=== PATIENT | male | born 1950 | race Caucasian/White ===

== ENCOUNTER 2021-04-25 18:23 | Observation (INO) ==
[2021-04-25 18:50] LABS: ABS Lymphocytes 1.3 10^3/ul (1.0-4.8); ABS Monocytes 0.6 10^3/ul (0-0.8); ABS Neutrophils 5.9 10^3/ul (1.5-7.7); Eosinophil % 0.3 %; Hematocrit 43 % (42-52); Lymphocyte % 16.5 %; Mean Corpuscular HGB Conc 35 g/dL (31-36); Mean Corpuscular Hemoglobin 36 pg (27-31); Mean Corpuscular Volume 103 fL (80-94); Mean Platelet Volume 7.5 fL (7.4-10.4); Platelet Count 199 10^3/uL (150-450); Red Blood Count 4.17 10^6 /uL (4.18-5.48); Red Cell Distribution Width 14 % (10-15); White Blood Count 7.9 10^3/uL (3.5-10.8)
[2021-04-25] MEDS ORDERED: Iodixanol (CONTRAST) 320 MG/ML 100 ML SDV IV ONE ×2 (18:55→19:13)
[2021-04-25 18:56] LABS: INR 0.89 (0.86-1.15)
[2021-04-25 19:06] LABS: Albumin 4.6 g/dL (3.2-5.2); Albumin/Globulin Ratio 1.6 (1-3); Calcium 9.6 mg/dL (8.6-10.3); EGFR African American 128.5 (>60); EGFR Non-African American 106.2 (>60); Globulin 2.9 g/dL (2-4); Total Bilirubin 0.4 mg/dL (0.2-1.0); Total Protein 7.5 g/dL (6.4-8.9)
[2021-04-25] MEDS ORDERED: Ondansetron 4 mg VIAL 2 MG/ML 2 ml VIAL IV PRN (20:02)
[2021-04-25] MEDS ORDERED: Lorazepam PYXIS KEY PRN (20:38)
[2021-04-25] MEDS ORDERED: LORazepam 2 mg VIAL 1 ml IV PUSH ONE (20:38)
[2021-04-25 20:58] LABS: Activated Partial Thrombo Time 27.1 seconds (26.0-38.0)
[2021-04-25 21:19] LABS: Potassium 4.1 mmol/L (3.5-5.0)
[2021-04-25] MEDS ORDERED: Lactated Ringers 1000 ml BAG 1,000 ML IV ONE (21:55)
[2021-04-26 01:28] LABS: Rapid COVID-19 Molecular Undetected (Undetected)
[2021-04-26] MEDS ORDERED: Thiamine 100 MG/ML 2 ml VIAL (200 mg) IM ONE (02:40)
[2021-04-26] MEDS ORDERED: LORazepam 2 mg VIAL 1 ml IV PUSH SCH (03:00)
[2021-04-26] MEDS ORDERED: Thiamine 100 MG/ML 2 ml VIAL 100 MG, Folic Acid IV 1 MG, Multiple Vitamin IV ADULT 10 M... IV ONE (04:47)
[2021-04-26] MEDS: Multivitamins/Minerals TAB PO SCH ×2 (04:55→09:52)
[2021-04-26 09:42] LABS: Hematocrit 43 % (42-52); Hemoglobin 14.8 g/dL (14.0-18.0); Mean Corpuscular HGB Conc 35 g/dL (31-36); Mean Corpuscular Hemoglobin 36 pg (27-31); Mean Corpuscular Volume 103 fL (80-94); Red Blood Count 4.14 10^6 /uL (4.18-5.48); Red Cell Distribution Width 14 % (10-15); White Blood Count 9.8 10^3/uL (3.5-10.8)
[2021-04-26] MEDS: hydrALAZINE 20 mg/ml 1 ML Vial IV IV SLOW PU PRN ×2 (09:52→16:18)
[2021-04-26] MEDS: Pantoprazole VIAL 40 MG VIAL IV SCH (09:52)
[2021-04-26 10:20] LABS: Calcium 9.3 mg/dL (8.6-10.3); EGFR African American 161.2 (>60); EGFR Non-African American 133.2 (>60); Potassium 4.3 mmol/L (3.5-5.0)
[2021-04-26 10:41] LABS: Mean Platelet Volume 8.1 fL (7.4-10.4); Platelet Count 181 10^3/uL (150-450)
[2021-04-26 10:42] LABS: ABS Eosinophils 0.1 10^3/ul (0-0.6); ABS Monocytes 0.6 10^3/ul (0-0.8); Eosinophil % 0.6 %; Lymphocyte % 10.3 %; Nucleated Red Blood Cells % 0.1
[2021-04-27 06:28] LABS: ABS Lymphocytes 0.8 10^3/ul (1.0-4.8); ABS Monocytes 0.7 10^3/ul (0-0.8); ABS Neutrophils 4.5 10^3/ul (1.5-7.7); Eosinophil % 0.3 %; Hematocrit 39 % (42-52); Hemoglobin 13.5 g/dL (14.0-18.0); Lymphocyte % 13.2 %; Mean Corpuscular HGB Conc 35 g/dL (31-36); Mean Corpuscular Hemoglobin 36 pg (27-31); Mean Corpuscular Volume 104 fL (80-94); Mean Platelet Volume 7.3 fL (7.4-10.4); Platelet Count 171 10^3/uL (150-450); Red Blood Count 3.76 10^6 /uL (4.18-5.48); Red Cell Distribution Width 14 % (10-15); White Blood Count 6.1 10^3/uL (3.5-10.8)
[2021-04-27 06:42] LABS: Calcium 9.4 mg/dL (8.6-10.3); EGFR African American 139.5 (>60); EGFR Non-African American 115.3 (>60); Potassium 4.1 mmol/L (3.5-5.0)
[2021-04-27 08:02] VITALS: BP 146/87
[2021-04-27] MEDS: Multivitamins/Minerals TAB PO SCH (09:48)
[2021-04-27] MEDS: Pantoprazole VIAL 40 MG VIAL IV SCH (09:48)
== END 2021-04-27 12:25 | disposition home or self-care (01) ==
LOC: SSU 18:23 → ED 18:23 → SSU 04-26 08:33
PROVIDERS: ADMIT Internal Medicine; ATTEND Hospitalist

== ENCOUNTER 2021-06-02 15:27 | Inpatient (IN) ==
[2021-06-02] MEDS ORDERED: LORazepam 2 mg VIAL 1 ml IV PUSH ONE ×3 (15:34→15:40)
[2021-06-02] MEDS ORDERED: Lorazepam PYXIS KEY PRN ×3 (15:34→15:40)
[2021-06-02] MEDS ORDERED: LORazepam 2 mg VIAL 1 ml ONE (15:34)
[2021-06-02 15:43] LABS: ABS Basophils 0.1 10^3/ul (0-0.2); ABS Eosinophils 0.1 10^3/ul (0-0.6); ABS Lymphocytes 1.3 10^3/ul (1.0-4.8); ABS Monocytes 1.2 10^3/ul (0-0.8); ABS Neutrophils 3.4 10^3/ul (1.5-7.7); Eosinophil % 1.6 %; Hematocrit 39 % (42-52); Hemoglobin 13.4 g/dL (14.0-18.0); Lymphocyte % 21.1 %; Mean Corpuscular HGB Conc 34 g/dL (31-36); Mean Corpuscular Hemoglobin 34 pg (27-31); Mean Corpuscular Volume 100 fL (80-94); Mean Platelet Volume 6.7 fL (7.4-10.4); Platelet Count 247 10^3/uL (150-450); Red Blood Count 3.94 10^6 /uL (4.18-5.48); Red Cell Distribution Width 13 % (10-15)
[2021-06-02 16:11] LABS: Albumin 4.1 g/dL (3.2-5.2); Albumin/Globulin Ratio 1.6 (1-3); Calcium 9.5 mg/dL (8.6-10.3); Globulin 2.6 g/dL (2-4); Potassium 3.6 mmol/L (3.5-5.0); Total Bilirubin 0.7 mg/dL (0.2-1.0); Total Protein 6.7 g/dL (6.4-8.9)
[2021-06-02] MEDS: Thiamine 100 MG/ML 2 ml VIAL (200 mg) IV ONE ×2 (16:14→17:06)
[2021-06-02] MEDS ORDERED: Iodixanol (CONTRAST) 320 MG/ML 100 ML SDV IV ONE (16:30)
[2021-06-02] MEDS ORDERED: Thiamine IV 100 MG in NS 0.9% 50 ML Q24H IV ONE (17:00)
[2021-06-02] MEDS ORDERED: levETIRAcetam 1000MG IVPREMIX 1,000 MG/100 ML BAG IVPB ONE (17:03)
[2021-06-02] MEDS ORDERED: Thiamine 100 MG/ML 2 ml VIAL (200 mg) IM ONE (18:53)
[2021-06-02] MEDS ORDERED: Multivitamins/Minerals TAB PO SCH (19:00)
[2021-06-02] MEDS ORDERED: Thiamine 100 MG/ML 2 ml VIAL (200 mg) IV ONE ×4 (19:04→19:28)
[2021-06-02 19:16] LABS: Rapid COVID-19 Molecular Undetected (Undetected)
[2021-06-02] MEDS: Thiamine 100 MG/ML 2 ml VIAL 100 MG, Folic Acid IV 1 MG, Multiple Vitamin IV ADULT 10 M... IV ONE ×2 (20:40→21:56)
[2021-06-02] MEDS ORDERED: THIAMINE IV ONE (21:00)
[2021-06-02] MEDS ORDERED: NS 0.9% IV ONE (21:00)
[2021-06-02] MEDS ORDERED: LORazepam 2 mg VIAL 1 ml IV PUSH SCH (21:00)
[2021-06-03 02:01] LABS: Urine Benzodiazepine Screen None Detected (None Detect); Urine Cannabinoids Screen None Detected (None Detect); Urine Opiates Screen Presumptive Positive (None Detect)
[2021-06-03] MEDS: Lactated Ringers 1000 ml BAG 500 ML IV SCH ×2 (02:52→17:24)
[2021-06-03] MEDS: levETIRAcetam IV 500 MG in NS 0.9% 100 ml BAG 100 ML IVPB SCH ×2 (05:54→17:21)
[2021-06-03] MEDS ORDERED: levETIRAcetam 500 MG IVPREMIX 500 MG/100 ML BAG IV SCH (06:00)
[2021-06-03 06:13] LABS: ABS Eosinophils 0.1 10^3/ul (0-0.6); ABS Lymphocytes 0.4 10^3/ul (1.0-4.8); ABS Monocytes 0.7 10^3/ul (0-0.8); ABS Neutrophils 2.4 10^3/ul (1.5-7.7); Eosinophil % 3.1 %; Hematocrit 34 % (42-52); Hemoglobin 11.7 g/dL (14.0-18.0); Lymphocyte % 11.5 %; Mean Corpuscular HGB Conc 35 g/dL (31-36); Mean Corpuscular Hemoglobin 35 pg (27-31); Mean Corpuscular Volume 98 fL (80-94); Mean Platelet Volume 6.5 fL (7.4-10.4); Nucleated Red Blood Cells % 0.1; Platelet Count 193 10^3/uL (150-450); Red Cell Distribution Width 13 % (10-15); White Blood Count 3.7 10^3/uL (3.5-10.8)
[2021-06-03 06:46] LABS: Albumin 3.2 g/dL (3.2-5.2); Albumin/Globulin Ratio 1.5 (1-3); Calcium 8.1 mg/dL (8.6-10.3); Globulin 2.1 g/dL (2-4); Magnesium 1.5 mg/dL (1.9-2.7); Phosphorus 3.1 mg/dL (2.5-5.0); Potassium 3.9 mmol/L (3.5-5.0); Total Bilirubin 0.6 mg/dL (0.2-1.0); Total Protein 5.3 g/dL (6.4-8.9)
[2021-06-03] MEDS ORDERED: Magnesium Sulf 4 GM/100 ML IV 4,000 MG/100 ML BAG IVPB ONE (06:53)
[2021-06-03] MEDS ORDERED: Potassium Chlor 20 meq TAB.ER PO ONE (06:54)
[2021-06-03] MEDS ORDERED: Magnesium Sulfate IV 3 GM in NS 0.9% 100 ml BAG 100 ML IVPB ONE (07:28)
[2021-06-03] MEDS: Multivitamins/Minerals TAB PO SCH (08:16)
[2021-06-03] MEDS: Thiamine IV 500 MG in NS 0.9% 250 ML IV SCH (08:16)
[2021-06-03] MEDS ORDERED: Thiamine 100 MG/ML 2 ml VIAL (200 mg) IV SCH ×2 (09:00)
[2021-06-03] MEDS ORDERED: Thiamine 100 MG/ML 2 ml VIAL 250 MG in NS 0.9% 100 ml BAG 100 ML IV SCH ×2 (09:00→21:00)
[2021-06-03] MEDS ORDERED: Lidocaine 1% VIAL 10 MG/ML VIAL ONE (11:24)
[2021-06-04 05:31] LABS: ABS Eosinophils 0.1 10^3/ul (0-0.6); ABS Lymphocytes 0.6 10^3/ul (1.0-4.8); ABS Monocytes 0.7 10^3/ul (0-0.8); ABS Neutrophils 2.3 10^3/ul (1.5-7.7); Eosinophil % 2.6 %; Hematocrit 37 % (42-52); Hemoglobin 12.7 g/dL (14.0-18.0); Lymphocyte % 15.7 %; Mean Corpuscular HGB Conc 35 g/dL (31-36); Mean Corpuscular Hemoglobin 35 pg (27-31); Mean Corpuscular Volume 99 fL (80-94); Mean Platelet Volume 6.6 fL (7.4-10.4); Nucleated Red Blood Cells % 0.1; Platelet Count 197 10^3/uL (150-450); Red Blood Count 3.69 10^6 /uL (4.18-5.48); Red Cell Distribution Width 13 % (10-15); White Blood Count 3.6 10^3/uL (3.5-10.8)
[2021-06-04] MEDS: Lactated Ringers 1000 ml BAG 500 ML IV SCH (05:43)
[2021-06-04 05:49] LABS: Calcium 8.8 mg/dL (8.6-10.3); Phosphorus 2.9 mg/dL (2.5-5.0); Potassium 4.1 mmol/L (3.5-5.0)
[2021-06-04] MEDS: levETIRAcetam IV 500 MG in NS 0.9% 100 ml BAG 100 ML IVPB SCH (05:53)
[2021-06-04] MEDS: Thiamine IV 500 MG in NS 0.9% 250 ML IV SCH (08:47)
[2021-06-04] MEDS: Multivitamins/Minerals TAB PO SCH (08:47)
[2021-06-04 13:13] VITALS: BP 123/82
[2021-06-04] MEDS ORDERED: levETIRAcetam 500 MG IVPREMIX 500 MG/100 ML BAG IVPB SCH (18:00)
== END 2021-06-04 12:50 | disposition home or self-care (01) | DRG 101 ==
LOC: ED 15:27 → EDHOLD 18:35 → ICU 21:48
PROVIDERS: ADMIT Internal Medicine; ATTEND Internal Medicine